=== PATIENT | female | born 1980 | race Caucasian/White ===

== ENCOUNTER 2018-02-05 02:11 | Inpatient (IN) | payer BC ==
[2018-02-05 03:08] VITALS: BMI 27.9
[2018-02-05 05:34] LABS: Hemoglobin 12.5 g/dL (12.0-16.0); Mean Corpuscular HGB CONC 32.7 g/dL (32.0-36.0); Mean Corpuscular Hemoglobin 25.8 pg (27.0-31.0); Mean Corpuscular Volume 78.9 fL (78.0-98.0); Mean Platelet Volume 9.6 fL (7.4-10.4); Platelet Count 142 thou/uL (130-400); RBC Distribution Width 13.7 % (11.5-14.5); Red Blood Cell (RBC) Count 4.85 mill/uL (4.20-5.40); White Blood Cell (WBC) Count 8.4 thou/uL (4.8-10.8)
[2018-02-05] MEDS ORDERED: Promethazine HCl 25 MG/ML VIAL IM PRN (05:52)
[2018-02-05] MEDS ORDERED: Lactated Ringer's 1,000 ML IV SCH (05:52)
[2018-02-05] MEDS ORDERED: Ondansetron PF 4 MG/2 ML Vial IVP PRN (05:52)
[2018-02-05] MEDS ORDERED: NS w/ Oxytocin 10 units 500 ML IV SCH ×2 (06:00)
[2018-02-05] MEDS ORDERED: Lidocaine 1% (PF) 30 ML VIAL SC PRN (06:00)
[2018-02-05] MEDS ORDERED: NS / Oxytocin 40 units/1000ml 1,000 ML IV SCH ×2 (06:00→10:30)
[2018-02-05 06:11] LABS: HBSAg Index 0.17 S/CO (0-0.99); Hep B Surf Ag Non-Reactive S/CO (NonReactive); Syphilis Antibody Nonreactive (Nonreactive); Syphilis Antibody Index 0.05 S/CO (<1.00 Non-Reactive)
[2018-02-05] MEDS ORDERED: Lidocaine 1% (PF) 30 ML VIAL ONE (08:21)
[2018-02-05] MEDS ORDERED: NS / Oxytocin 40 units/1000ml 0 ML ONE (08:21)
[2018-02-05] MEDS ORDERED: Oxytocin 10 UNITS/ML VIAL ONE (08:21)
[2018-02-05] MEDS ORDERED: Benzocaine/Menthol 20-0.5% 60 ML CAN TOP PRN (10:23)
[2018-02-05] MEDS ORDERED: Preparation H Ointment 28 GM TUBE PR PRN (10:23)
[2018-02-05] MEDS ORDERED: diphenhydrAMINE 25 MG CAP PO PRN (10:23)
[2018-02-05] MEDS ORDERED: Milk Of Magnesia 30 ML UDCUP PO PRN (10:23)
[2018-02-05] MEDS ORDERED: traMADol HCl 50 MG TAB PO PRN (10:23)
[2018-02-05] MEDS ORDERED: Bisacodyl 10 MG SUPP PR PRN (10:23)
[2018-02-05] MEDS ORDERED: Adacel (T-DAP) 0.5 ML VIAL IM ONE (10:23)
--- NOTE | 2018-02-05 10:28 | PDOC.OPDEL ---
OB Operative/Delivery Note Delivery Dr/Surgeon: Charline Pre-Delivery Diagnosis: active labor Procedure/Post Delivery Dx: spontaneous vaginal delivery Weeks gestation: 40 - Findings A Sex: female - 1 min: 10 - 5 min: 10 - Additional Findings/Plan Placenta delivered: spontaneous Repaired Obstetrical Laceration: 2nd degree Estimated blood loss: QBL 115ml Post delivery plan: routine recovery
[2018-02-05] MEDS: Ibuprofen 800 MG TAB PO SCH ×2 (14:55→22:29)
[2018-02-05] MEDS: Ferrous Sulfate 325 MG TAB PO SCH (17:28)
[2018-02-06 01:22] VITALS: TEMP 97.7
[2018-02-06] MEDS: Docusate Calcium (SURFAK) 240 MG CAP PO SCH ×2 (01:24→10:51)
[2018-02-06 07:34] VITALS: BP 115/67
[2018-02-06] MEDS: Ibuprofen 800 MG TAB PO SCH (07:36)
--- NOTE | 2018-02-06 08:05 | PDOC.PP ---
Post Progress Note Post Day #: 1 PO intake tolerated: yes Flatus: yes Ambulation: yes Vital Signs (12 hours) Temp Pulse Resp BP Pulse Ox 02/06/18 07:32 97.7 F 69 14 115/67 98 02/06/18 00:52 97.7 F 67 16 121/62 02/05/18 20:35 98.3 F 75 16 109/54 L 98 Weight Weight 184 lb - Physical Examination General: NAD Cardiovascular: no m/r/g, RRR Respiratory: clear to auscultation bilaterally Abdominal: + bowel sounds, lochia, no distention Extremities: negative homans (B) Neurological: no gross focal deficits Psychiatric: A&Ox3, normal affect Result Diagrams: 02/05/18 05:23 Additional Labs: Post Labs Blood Type A POSITIVE 02/05/18 05:23 Hep Bs Antigen Non-Reactive S/CO (NonReactive) 02/05/18 05:23 (1) Normal vaginal delivery Code(s): O80 - ENCOUNTER FOR FULL-TERM UNCOMPLICATED DELIVERY Status: Acute - Assessment/Plan doing well, dc home
[2018-02-06] MEDS ORDERED: Prenatal Vitamin 1 TAB PO SCH (09:00)
[2018-02-06] MEDS: Ferrous Sulfate 325 MG TAB PO SCH (10:50)
== END 2018-02-06 13:40 | disposition home or self-care (01) | DRG 807 ==
LOC: L&D/OP 02:11 → L&D-LIB 04:48 → 3SW 12:40
PROVIDERS: ADMIT Obstetrics & Gynecology; ATTEND Obstetrics & Gynecology
PROC: 10907ZC Drainage of Amniotic Fluid, Therapeutic from Products of Conception, Via Natural or Artificial Opening (ICD-10-PCS; principal; 2018-02-05)
PROC: 10E0XZZ Delivery of Products of Conception, External Approach (ICD-10-PCS; 2018-02-05)
PROC: 0KQM0ZZ Repair Perineum Muscle, Open Approach (ICD-10-PCS; 2018-02-05)
DX: O48.0 Post-term pregnancy (principal); Z37.0 Single live birth; Z3A.40 40 weeks gestation of pregnancy; O70.1 Second degree perineal laceration during delivery
CPT/HCPCS: 85027; 86780; 86850; 86900; 86901; 87340; 99285; J2001; J2590